=== PATIENT | male | born 1990 | race Two or more races ===

== ENCOUNTER 2024-06-22 21:47 | Emergency (ER) | payer MEDICAID ==
[~2024-06-22] VITALS: Ht 182.9 cm; Wt 95.0 kg
[2024-06-23 00:33] LABS: CHLORIDE 105 mEq/L (98-107); POTASSIUM 3.4 mEq/L (3.5-5.1); SODIUM 141 mEq/L (136-145)
[2024-06-23 00:34] LABS: CALCIUM 9.2 mg/dL (8.7-10.4); CARBON DIOXIDE 24 mEq/L (21-32)
[2024-06-23 00:38] LABS: BASOPHILS % 0.3 % (0.0-2.0); EOSINOPHILS % 0.5 % (0.0-5.0); HEMOGLOBIN. 12.7 g/dL (14.0-18.0); LYMPHOCYTES % 9.1 % (20.0-50.0); MEAN CORPUSCULAR HEMOGLOBIN 30.8 pg (28.0-32.0); MEAN CORPUSCULAR HGB CONC 32.5 g/dL (31.0-37.0); MEAN CORPUSCULAR VOLUME 94.8 fL (80.0-94.0); MEAN PLATELET VOLUME 8.6 fl (7.4-10.4); MONOCYTES % 4.6 % (2.0-8.0); NEUTROPHILS % 85.5 % (40.0-76.0); PLATELET 330 x1000/uL (130-400); RED BLOOD CELL COUNT 4.12 mill/uL (4.7-6.1); RED CELL DISTRIBUTION WIDTH 13.9 % (11.6-14.6); WHITE BLOOD COUNT 14.8 x1000/uL (4.5-11.0)
[2024-06-23 00:39] LABS: GLUCOSE 81 mg/dL (70-105); UREA NITROGEN BLOOD 12 mg/dL (9-23)
[2024-06-23 00:41] LABS: ACETAMINOPHEN < 2 ug/mL (10-30)
[2024-06-23 00:45] LABS: ETHANOL BLOOD < 10 mg/dL (<10)
[2024-06-23] MEDS: ALBUTEROL (0.083%) 2.5MG/3ML NEB ONE (01:45)
[2024-06-23] MEDS: ALBUTEROL (0.083%) 2.5MG/3ML NEB HHN ONE (01:50)
[2024-06-23 01:53] VITALS: PULSE 72; RESP 20; O2SAT 99
[2024-06-23 02:32] LABS: *AMPHETAMINES SCREEN URINE NEGATIVE (NEGATIVE); *BARBITURATES SCREEN URINE NEGATIVE (NEGATIVE); *BENZODIAZEPINES SCREEN URINE NEGATIVE (NEGATIVE); *COCAINE SCREEN URINE NEGATIVE (NEGATIVE); CANNABINOID URINE SCREEN PRESUMPTIVE POSITIVE (NEGATIVE); ECSTASY MDMA SCREEN URINE NEGATIVE (NEGATIVE); METHADONE URINE SCREEN NEGATIVE (NEGATIVE); OPIATES URINE SCREEN NEGATIVE (NEGATIVE); PHENCYCLIDINE URINE SCREEN NEGATIVE (NEGATIVE)
[2024-06-23] MEDS ORDERED: LORAZEPAM 1MG TABLET PO ONE (07:15)
[2024-06-23] MEDS: LORAZEPAM 1MG TABLET PO NR ×2 (13:13→22:21)
[2024-06-23 18:00] VITALS: BP 126/73; PULSE 92; RESP 18; TEMP 36.6; O2SAT 99
[2024-06-24] MEDS: LORAZEPAM 1MG TABLET PO ONE (06:56)
[2024-06-24] MEDS: IBUPROFEN 800MG TABLET PO ONE (06:56)
== END 2024-06-24 06:59 | disposition home or self-care (01) ==
LOC: ER 21:47
DX: F23 Brief psychotic disorder (principal); I49.9 Cardiac arrhythmia, unspecified; J45.909 Unspecified asthma, uncomplicated; Z86.59 Personal history of other mental and behavioral disorders; Z20.822 Contact with and (suspected) exposure to COVID-19
CPT/HCPCS: 80305; 80048; 80307; 80329; 80320; 85025; 36415; 99285; 87426; 93005; Z7610; G0480